=== PATIENT | male | born 1985 | race Caucasian/White ===

== ENCOUNTER 2019-08-25 07:58 | Emergency (ER) | payer OTHER, SELFPAY ==
[~2019-08-25] VITALS: Ht 180.3 cm; Wt 89.4 kg
[2019-08-25 09:28] LABS: MEAN CORPUSCULAR HEMOGLOBIN 29.2 pg (27.5-34.5); MEAN CORPUSCULAR HGB CONC 33.9 g/dL (33.2-36.2); MEAN CORPUSCULAR VOLUME 86.2 fL (81-97); PLATELET COUNT 197 x10^3/uL (130-400); RED BLOOD COUNT 5.27 x10^6/uL (4.38-5.82); RED CELL DISTRIBUTION WIDTH 12.6 % (9.4-14.8)
[2019-08-25] MEDS ORDERED: PLEASE ENTER ALLERGIES MC SCH (09:30)
[2019-08-25 09:38] LABS: ALBUMIN 3.6 g/dL (3.4-5.0); ANION GAP 6 mmol/L (5-15); CALCIUM 9.2 mg/dL (8.5-10.1); CHLORIDE 105 mmol/L (98-107); CREATININE 1.53 mg/dL (0.7-1.3)
[2019-08-25 09:50] LABS: MD YES
[2019-08-25 09:52] LABS: <PLATELET ESTIMATE> ADEQUATE; <PLT MORPHOLOGY> NORMAL PLT MORPH; <RBC MORPHOLOGY> NORMAL; BAND#(MANUAL) 1.94 x10^3/uL; BANDS%(MANUAL) 8 % (0-7); LYMPH#(MANUAL) 1.94 x10^3/uL (1-3.4); LYMPHS% (MANUAL) 8 % (22-44); MONOS#(MANUAL) 1.21 x10^3/uL (0.3-2.7); MONOS% (MANUAL) 5 % (2-9); SEG#(MANUAL) 19.12 x10^3/uL (1.8-6.8); SEGS% (MANUAL) 79 % (42-75)
[2019-08-25] MEDS ORDERED: NAPROXEN 500 MG TABLET PO ONE (10:00)
[2019-08-25] MEDS ORDERED: AZITHROMYCIN 500 MG TABLET PO ONE (10:00)
--- NOTE | 2019-08-25 10:30 | NUR ---
PT SPEAKING IN FULL SENTENCES, NO DISTRESS. OCCASIONAL COUGH.
[2019-08-25] MEDS ORDERED: AZITHROMYCIN 500 MG TABLET ONE (10:53)
[2019-08-25 11:36] VITALS: BP 111/74
[2019-08-25] MEDS ORDERED: PROPOFOL 10 MG/ML, 20ML ONE (12:27)
== END 2019-08-25 11:40 | disposition home or self-care (01) ==
LOC: ED 08:04
DX: J18.9 Pneumonia, unspecified organism (principal); Z20.828 Contact with and (suspected) exposure to other viral communicable diseases; D72.825 Bandemia; M79.10 Myalgia, unspecified site; F17.200 Nicotine dependence, unspecified, uncomplicated; R94.31 Abnormal electrocardiogram [ECG] [EKG]; Z11.59 Encounter for screening for other viral diseases
CPT/HCPCS: 36415; 71045; 80048; 82040; 83605; 83615; 85025; 99284